=== PATIENT | male | born 1970 | race African-American/Black ===

== ENCOUNTER 2017-02-25 16:56 | Emergency (ER) ==
[2017-02-25 16:59] VITALS: BP 147/103; TEMP 97.4; BMI 29.7
[2017-02-25] MEDS ORDERED: NITROSTAT SL PRN (17:02)
[2017-02-25 17:12] LABS: BASOPHILS % (AUTO) 0.6 % (0.0-3.0); EOSINOPHILS # (AUTO) 0.1 K/ul (0.0-0.7); EOSINOPHILS % (AUTO) 1.7 % (0.0-7.0); HEMATOCRIT 38.5 % (42.0-52.0); HEMOGLOBIN 13.1 g/dl (14.0-18.0); IMMATURE GRANULOCYTE % (AUTO) 0.6 % (0.0-5.0); LYMPHOCYTES # (AUTO) 1.6 K/uL (0.60-3.4); LYMPHOCYTES % (AUTO) 30.3 (10.0-50.0); MEAN CORPUSCULAR HEMOGLOBIN 28.2 pg (27.0-31.0); MEAN CORPUSCULAR VOLUME 82.8 fl (80.0-94.0); MONOCYTES # (AUTO) 0.4 K/uL (0.4-2.0); NEUTROPHILS # (AUTO) 3.1 K/ul (2.0-6.9); NEUTROPHILS % (AUTO) 58.8; PLATELET COUNT 328 10^3/uL (140-440); RED BLOOD COUNT 4.65 10^6/ul (4.70-6.10); WHITE BLOOD COUNT 5.25 K/ul (4.2-10.2)
--- NOTE | 2017-02-25 17:18 | ED.PDOC ---
General ED Provider: Dr. ASHLEY FRANKEL JR Chief Complaint: Chest Pain Stated Complaint: patient states he was driving when he developed chest tightness and shortness of breath.[ End ]5 minutes 97.4 62 20 99% 147/103 02/02 Time Seen by Physician: 17:17 Mode of Arrival: Walk-In Information Source: Patient Exam Limitations: No limitations Nursing and Triage Documentation Reviewed and Agree: No Review of Systems - Review Of Systems Constitutional: Reports: No symptoms Eyes: Reports: No symptoms Ears, Nose, Mouth, Throat: Reports: No symptoms Respiratory: Reports: Short of air Cardiac: Reports: Chest pain (mid chest pain 10-15 minutes shrugged it off but drove past hospital) GI: Reports: No symptoms : Reports: No symptoms Musculoskeletal: Reports: No symptoms Skin: Reports: No symptoms Neurological: Reports: No symptoms Endocrine: Reports: No symptoms Hematologic/Lymphatic: Reports: No symptoms All Other Systems: Other Past Medical History - Past Medical History Previously Healthy: Yes Endocrine: Reports: None Cardiovascular: Reports: None, Other Respiratory: Reports: None Hematological: Reports: None Gastrointestinal: Reports: None Genitourinary: Reports: None Neuro/Psych: Reports: TIA Musculoskeletal: Reports: None Cancer: Reports: None - Surgical History General Surgical History: Reports: Hernia Repair, Other (PFO CLOSED OFF 2010 ) - Family History Family History: Reports: Heart (mother chf at 68- recc evaluation 10 years younger) - Social History Smoking Status: Never smoker Hx Substance Use: No Alcohol Screening: Occasionally Physical Exam - Physical Exam Appearance: Well-appearing Eyes: SHANICE, EOMI, Conjunctiva clear ENT: Ears normal, Nose normal, Oropharynx normal Neck: Supple Respiratory: Airway patent, Breath sounds clear, Breath sounds equal, Respirations nonlabored Cardiovascular: RRR, Pulses normal, No rub, No murmur GI/: Soft, Nontender, No masses, Bowel sounds normal, No Organomegaly Musculoskeletal: Normal strength, ROM intact, No edema, No calf tenderness Skin: Warm, Dry, Normal color Neurological: Sensation intact, Motor intact, Reflexes intact, Cranial nerves intact, Alert, Oriented Psychiatric: Affect appropriate, Mood appropriate Interpretation - Radiology Interpretation Radiology Interpretation By: ED Physician Radiology Results: Negative Exam Interpreted: CXR - EKG Interpretation Time of EKG #1: 17:28 Rate: Normal Rhythm: Sinus ST Segment: Other (nonspecific changes) Critical Care Note - Critical Care Note Total Time (mins): 5 Course - Course Hematology/Chemistry: 02/25/17 17:05 02/25/17 17:05 Orders, Labs, Meds: Lab Review 02/25/17 17:05 WBC 5.25 RBC 4.65 L Hgb 13.1 L Hct 38.5 L MCV 82.8 MCH 28.2 MCHC 34.0 RDW Coeff of [place] 12.9 Plt Count 328 Immature Gran % (Auto) 0.6 Neut % (Auto) 58.8 Lymph % (Auto) 30.3 Villalba % (Auto) 8.0 Eos % (Auto) 1.7 Baso % (Auto) 0.6 Immature Gran # (Auto) 0.0 Neut # 3.1 Lymph # 1.6 Villalba # 0.4 Eos # 0.1 Baso # 0.0 Sodium 141 Potassium 3.8 Chloride 106 Carbon Dioxide 27 Anion Gap 11.8 BUN 12 Creatinine 1.06 Estimated GFR (MDRD) 92.00 BUN/Creatinine Ratio 11.32 Glucose 90 Calcium 9.1 Total Bilirubin 0.32 AST 23 ALT 26 Alkaline Phosphatase 106 Total Creatine Kinase 454 CK-MB (CK-2) 2.4 CK-MB (CK-2) % 0.34760 Troponin I < 0.0100 B-Natriuretic Peptide < 10 Total Protein 8.1 Albumin 4.0 Globulin 4.1 Albumin/Globulin Ratio 0.98 Procalcitonin < 0.05 Orders Category Date Time Status EKG-(ED ONLY) Stat CARDIO 02/25/17 17:03 Ordered ED BUYING AGENT APPLIED .ONCE EMERGENCY 02/25/17 17:02 Active ED IV/MEDIPORT/POWERPORT .ONCE EMERGENCY 02/25/17 17:02 Active B-TYPE NATRIURETIC PEPTIDE Stat LAB 02/25/17 17:05 Completed CBC W/ AUTO DIFF Stat LAB 02/25/17 17:05 Completed COMPREHENSIVE METABOLIC PANEL Stat LAB 02/25/17 17:05 Completed CREATINE KINASE Stat LAB 02/25/17 17:05 Completed PROCALCITONIN Stat LAB 02/25/17 17:05 Completed TROPONIN I Stat LAB 02/25/17 17:05 Completed 0.9 % Sodium Chloride [Saline Flush] MEDS 02/25/17 17:02 Ordered 1 syr IVF PRN PRN Nitroglycerin [Nitrostat] MEDS 02/25/17 17:02 Ordered 0.4 mg SL Q5MIN X 3 DOSES PRN CHEST, 1V AP ONLY Stat RADS 02/25/17 17:03 Completed Medications Generic Name Dose Route Start Last Admin Trade Name Andrew PRN Reason Stop Dose Admin Nitroglycerin 0.4 mg 02/25/17 17:02 Nitrostat SL Q5MIN X 3 DOSES PRN Chest Pain Sodium Chloride 1 syr 02/25/17 17:02 Saline Flush IVF PRN PRN To flush IV Vital Signs: Temp Pulse Resp BP Pulse Ox 02/25/17 16:56 97.4 F L 62 20 147/103 H 99 ODALYS Risk Score ODALYS Risk Score: Risk Score Odds of by 30D 0 0.1 (0.1-0.2) 1 0.3 (0.2-0.3) 2 0.4 (0.3-0.5) 3 0.7 (0.6-0.9) 4 1.2 (1.0-1.5) 5 2.2 (1.9-2.6) 6 3.0 (2.5-3.6) 7 4.8 (3.8-6.1) Departure - Departure Time of Disposition: 18:16 Disposition: HOME SELF-CARE Discharge Problem: Chest pain Qualifiers: Chest pain type: precordial pain Qualifier Code: (R07.2) Precordial pain Instructions: Chest Pain (ED) Condition: Good Pt referred to PMD for follow-up: Yes Additional Instructions: testing is normal recommend return if chest pain returns follow up with PMD call in morning for follow up discuss if further testing indicated Allergies/Adverse Reactions: Allergies No Known Allergies Allergy (Unverified 02/25/17 16:59) Home Medications: Ambulatory Orders Loratadine [Claritin] 10 mg PO DAILY 02/25/17 Zolpidem Tartrate [Ambien] 5 mg PO BEDTIME PRN 02/25/17
--- NOTE | 2017-02-25 17:32 | DI ---
EXAM: Single-view chest HISTORY: Chest pain COMPARISON: Two-view chest 01/30/2015 FINDINGS: The cardiomediastinal silhouette is stable. The lungs are clear bilaterally. IMPRESSION: No evidence of active pulmonary disease
[2017-02-25 17:48] LABS: ALANINE AMINOTRANSFERASE 26 U/L (12-78); ALBUMIN/GLOBULIN RATIO 0.98; ALKALINE PHOSPHATASE 106 U/L (50-136); ANION GAP 11.8; ASPARTATE AMINO TRANSFERASE 23 U/L (15-37); BILIRUBIN,TOTAL 0.32 mg/dL (0.00-1.20); BLOOD UREA NITROGEN 12 mg/dL (7-18); BUN/CREATININE RATIO 11.32; CALCIUM 9.1 mg/dL (8.2-10.2); CARBON DIOXIDE 27 mmol/L (21-32); CHLORIDE 106 mmol/L (98-107); CREATINE KINASE 454 U/L; CREATININE 1.06 mg/dL (0.60-1.10); GLUCOSE 90 mg/dL (70-100); POTASSIUM 3.8 mmol/L (3.5-5.1); SODIUM 141 mmol/L (136-145); TOTAL PROTEIN 8.1 g/dL (6.4-8.2)
[2017-02-25 17:52] LABS: CREATINE KINASE MB 2.4 ng/ml (0.0-3.6)
== END 2017-02-25 18:25 | disposition home or self-care (01) ==
LOC: ED 16:56
DX: R07.2 Precordial pain (principal); R06.02 Shortness of breath; Z86.73 Personal history of transient ischemic attack (TIA), and cerebral infarction without residual deficits
CPT/HCPCS: 36415; 80053; 82550; 82553; 83880; 84145; 84484; 85025; 93005; 93010; 99283